=== PATIENT | male | born 1945 | race Caucasian/White ===

== ENCOUNTER 2022-12-06 11:15 | Inpatient (IN) | payer OTHER ==
[2022-12-06] MEDS ORDERED: LIDOCAINE 5% TOPICAL PATCH TP ONE (11:55)
[2022-12-06] MEDS ORDERED: ACETAMINOPHEN 1000 MG/100 ML BAG IVPB ONE (11:55)
[2022-12-06] MEDS ORDERED: ACETAMINOPHEN INJECTION 100 ML IVPB ONE (12:18)
[2022-12-06] MEDS ORDERED: LIDOCAINE 5% TOPICAL PATCH ONE (12:20)
[2022-12-06 13:00] LABS: BASO % 0.4 % (0-2.0); EOS % 0.4 % (0-4.5); HEMATOCRIT 47.5 % (35.4-49); HEMOGLOBIN 15.7 GM/dL (11.7-16.9); LYMPH % 14.5 % (8-40); MCH 29.7 pg (25.7-33.7); MCHC 33.2 g/dl (32.0-35.9); MEAN CELL VOLUME 89.7 fl (80-96); MEAN PLT VOLUME 7.5 fl (7.5-11.1); MONO % 6.8 % (3.8-10.2); NEUT % 77.9 % (42.8-82.8); PLATELET COUNT 335 10^3/uL (134-434); RBC 5.29 M/mm3 (4.00-5.60); RDW 15.4 % (11.9-15.9); WHITE BLOOD COUNT 14.6 K/mm3 (4.0-10.0)
[2022-12-06 13:04] LABS: INR 1.17 (0.83-1.09); PROTHROMBIN TIME (PATIENT) 13.5 SEC (9.7-13.0)
[2022-12-06 13:06] LABS: ACTIVATED PTT 30.9 SECONDS (25.2-36.5)
[2022-12-06 13:12] LABS: POTASSIUM 5.3 mmol/L (3.5-5.1)
[2022-12-06 13:14] LABS: ALBUMIN 3.1 g/dl (3.4-5.0); CALCIUM 8.7 mg/dL (8.5-10.1)
[2022-12-06 13:15] LABS: BLOOD UREA NITROGEN 20.6 mg/dL (7-18)
[2022-12-06 13:18] LABS: CREATININE 1.3 mg/dL (0.55-1.3)
[2022-12-06 13:19] LABS: TOT PROT 6.9 g/dl (6.4-8.2)
[2022-12-06 13:20] LABS: BILIRUBIN,TOTAL 0.8 mg/dL (0.2-1)
[2022-12-06] MEDS ORDERED: AZITHROMYCIN IVPB 500 MG in DEXTROSE 5%-WATER - 250 ML IVPB ONE (15:43)
[2022-12-06] MEDS ORDERED: CEFTRIAXONE 1,000 MG in DEXTROSE 5%-WATER - 50 ML IVPB ONE (15:43)
[2022-12-06] MEDS ORDERED: methylPREDNISolone NA SUCC 125 MG/2 ML VIAL IVPUSH ONE (16:57)
[2022-12-06] MEDS ORDERED: ALBUTEROL SO4 2.5/IPRATROPIUM 0.5 INH SOL 3 ML VIAL.NEB. NEB ONE ×2 (17:00→17:01)
[2022-12-06] MEDS ORDERED: CEFTRIAXONE 1 GM/50 ML BAG ONE (17:01)
[2022-12-06] MEDS ORDERED: methylPREDNISolone NA SUCC 125 MG/2 ML VIAL ONE (17:01)
[2022-12-06] MEDS: ALBUTEROL SO4 2.5/IPRATROPIUM 0.5 INH SOL 3 ML VIAL.NEB. NEB SCH ×5 (17:02→21:32)
[2022-12-06] MEDS ORDERED: AZITHROMYCIN IVPB 500 MG/250 ML BAG IVPB ONE (17:52)
[2022-12-06] MEDS ORDERED: ALBUTEROL SO4 HFA INHALER IH PRN (17:54)
[2022-12-06] MEDS ORDERED: ALBUTEROL SO4 2.5/IPRATROPIUM 0.5 INH SOL 3 ML VIAL.NEB. NEB SCH (18:00)
[2022-12-06] MEDS ORDERED: predniSONE 20 MG TABLET (UD) PO SCH (18:00)
[2022-12-06] MEDS ORDERED: predniSONE 20 MG TABLET (UD) ONE (18:05)
[2022-12-06] MEDS ORDERED: ACETAMINOPHEN 325 MG TABLET (FP) PO PRN (18:18)
[2022-12-06] MEDS: LIDOCAINE PATCH REMOVAL MC SCH (21:59)
[2022-12-06] MEDS ORDERED: LIDOCAINE PATCH REMOVAL MC ONE (22:00)
[2022-12-06] MEDS: INSULIN SLIDING SCALE (NOVOLOG) 1 VIAL SQ SCH (22:11)
[2022-12-07 04:06] VITALS: BMI 27.1
[2022-12-07] MEDS: ALBUTEROL SO4 2.5/IPRATROPIUM 0.5 INH SOL 3 ML VIAL.NEB. NEB SCH ×4 (07:32→20:13)
[2022-12-07] MEDS: INSULIN SLIDING SCALE (NOVOLOG) 1 VIAL SQ SCH ×4 (07:42→21:34)
[2022-12-07 09:04] LABS: BASO % 0.4 % (0-2.0); HEMATOCRIT 44.8 % (35.4-49); HEMOGLOBIN 14.6 GM/dL (11.7-16.9); LYMPH % 8.8 % (8-40); MCHC 32.7 g/dl (32.0-35.9); MEAN CELL VOLUME 91.8 fl (80-96); MEAN PLT VOLUME 8.7 fl (7.5-11.1); MONO % 1.7 % (3.8-10.2); NEUT % 89.1 % (42.8-82.8); PLATELET COUNT 335 10^3/uL (134-434); RBC 4.88 M/mm3 (4.00-5.60); RDW 14.8 % (11.9-15.9); WHITE BLOOD COUNT 11.1 K/mm3 (4.0-10.0)
[2022-12-07] MEDS: INSULIN (LEVEMIR) 100 UNITS/ML UNITS SQ SCH ×2 (09:23→21:34)
[2022-12-07] MEDS: AZITHROMYCIN IVPB 250 MG in DEXTROSE 5%-WATER - 250 ML IVPB SCH (09:27)
[2022-12-07] MEDS: LIDOCAINE 5% TOPICAL PATCH TP SCH (09:27)
[2022-12-07] MEDS: ENOXAPARIN NA (PORCINE) 40 MG/0.4 ML DISP.SYRIN SQ SCH (09:27)
[2022-12-07] MEDS: LOSARTAN POTASSIUM 25 MG TABLET PO SCH (09:27)
[2022-12-07] MEDS: amLODIPine BESYLATE 10 MG TABLET (FP) PO SCH (09:27)
[2022-12-07] MEDS: predniSONE 20 MG TABLET (UD) PO SCH (09:27)
[2022-12-07 09:30] LABS: CHLORIDE 103 mmol/L (98-107); SODIUM 136 mmol/L (136-145)
[2022-12-07 09:35] LABS: CHOLESTEROL 130 mg/dL (50-200)
[2022-12-07 09:37] LABS: HDL CHOLESTEROL 54 mg/dL (40-60)
[2022-12-07 09:38] LABS: CALCIUM 8.1 mg/dL (8.5-10.1); LDL CHOLESTEROL (ONLY SJRH) 64 mg/dL (5-100)
[2022-12-07 09:39] LABS: ANION GAP 10 MMOL/L (8-16); CO2 22 mmol/L (21-32); MAGNESIUM 2.1 mg/dL (1.8-2.4)
[2022-12-07 09:41] LABS: CREATININE 1.3 mg/dL (0.55-1.3); PHOSPHOROUS 4.3 mg/dL (2.5-4.9)
[2022-12-07 09:42] LABS: SGOT/AST 13 U/L (15-37); SGPT/ALT 25 U/L (13-61)
[2022-12-07 09:45] LABS: BILIRUBIN,TOTAL 0.7 mg/dL (0.2-1); TOT PROT 6.5 g/dl (6.4-8.2)
[2022-12-07 09:46] LABS: ALK PHOS 65 U/L (45-117)
[2022-12-07 09:53] LABS: GLUCOSE,RANDOM 417 mg/dL (74-106)
[2022-12-07] MEDS: INSULIN (NOVOLOG) ASPART 100 UNITS/ML 10ML VIAL SQ SCH (16:30)
[2022-12-07] MEDS ORDERED: INSULIN (NOVOLOG) ASPART 100 UNITS/ML 10ML VIAL ONE (21:07)
[2022-12-07] MEDS: LIDOCAINE PATCH REMOVAL MC SCH (21:31)
[2022-12-08] MEDS: INSULIN (LEVEMIR) 100 UNITS/ML UNITS SQ SCH ×2 (06:38→21:47)
[2022-12-08] MEDS: INSULIN SLIDING SCALE (NOVOLOG) 1 VIAL SQ SCH ×4 (06:38→21:47)
[2022-12-08] MEDS: INSULIN (NOVOLOG) ASPART 100 UNITS/ML 10ML VIAL SQ SCH ×3 (06:39→16:51)
[2022-12-08] MEDS: ALBUTEROL SO4 2.5/IPRATROPIUM 0.5 INH SOL 3 ML VIAL.NEB. NEB SCH ×4 (07:30→19:53)
[2022-12-08] MEDS ORDERED: INSULIN (NOVOLOG) ASPART 100 UNITS/ML 10ML VIAL ONE ×2 (07:46→21:24)
[2022-12-08] MEDS ORDERED: INSULIN (LEVEMIR) 100 UNITS/ML UNITS SQ ONE (07:46)
[2022-12-08] MEDS: predniSONE 20 MG TABLET (UD) PO SCH (10:00)
[2022-12-08] MEDS: ENOXAPARIN NA (PORCINE) 40 MG/0.4 ML DISP.SYRIN SQ SCH (10:01)
[2022-12-08] MEDS: LIDOCAINE 5% TOPICAL PATCH TP SCH (10:01)
[2022-12-08] MEDS: LOSARTAN POTASSIUM 25 MG TABLET PO SCH (10:01)
[2022-12-08] MEDS: amLODIPine BESYLATE 10 MG TABLET (FP) PO SCH (10:01)
[2022-12-08] MEDS: AZITHROMYCIN IVPB 250 MG in DEXTROSE 5%-WATER - 250 ML IVPB SCH (10:51)
[2022-12-08] MEDS ORDERED: methylPREDNISolone NA SUCC 40 MG/1 ML VIAL IVPUSH ONE (13:12)
[2022-12-08] MEDS: methylPREDNISolone NA SUCC 40 MG/1 ML VIAL IVPUSH SCH (14:41)
[2022-12-08] MEDS: LIDOCAINE PATCH REMOVAL MC SCH (21:47)
[2022-12-08] MEDS: ATORVASTATIN CA 40 MG TABLET (FP) PO SCH (21:47)
[2022-12-09] MEDS: INSULIN (NOVOLOG) ASPART 100 UNITS/ML 10ML VIAL SQ SCH ×3 (06:37→16:57)
[2022-12-09] MEDS: INSULIN (LEVEMIR) 100 UNITS/ML UNITS SQ SCH ×3 (06:37→21:25)
[2022-12-09] MEDS: INSULIN SLIDING SCALE (NOVOLOG) 1 VIAL SQ SCH ×4 (06:37→21:26)
[2022-12-09] MEDS ORDERED: INSULIN (LEVEMIR) 100 UNITS/ML UNITS SQ ONE (07:32)
[2022-12-09] MEDS: ALBUTEROL SO4 2.5/IPRATROPIUM 0.5 INH SOL 3 ML VIAL.NEB. NEB SCH ×4 (07:53→19:37)
[2022-12-09] MEDS: LIDOCAINE 5% TOPICAL PATCH TP SCH (09:56)
[2022-12-09] MEDS: amLODIPine BESYLATE 10 MG TABLET (FP) PO SCH (09:56)
[2022-12-09] MEDS: ENOXAPARIN NA (PORCINE) 40 MG/0.4 ML DISP.SYRIN SQ SCH (09:56)
[2022-12-09] MEDS: methylPREDNISolone NA SUCC 40 MG/1 ML VIAL IVPUSH SCH (09:56)
[2022-12-09] MEDS: LOSARTAN POTASSIUM 25 MG TABLET PO SCH (09:56)
[2022-12-09] MEDS: AZITHROMYCIN IVPB 250 MG in DEXTROSE 5%-WATER - 250 ML IVPB SCH (09:57)
[2022-12-09 10:30] LABS: BASO % 0.4 % (0-2.0); EOS % 0.6 % (0-4.5); HEMOGLOBIN 13.7 GM/dL (11.7-16.9); LYMPH % 20.3 % (8-40); MCH 29.4 pg (25.7-33.7); MCHC 32.7 g/dl (32.0-35.9); MEAN PLT VOLUME 7.6 fl (7.5-11.1); MONO % 7.8 % (3.8-10.2); NEUT % 70.9 % (42.8-82.8); PLATELET COUNT 363 10^3/uL (134-434); RBC 4.66 M/mm3 (4.00-5.60); RDW 15.3 % (11.9-15.9); WHITE BLOOD COUNT 12.4 K/mm3 (4.0-10.0)
[2022-12-09 10:53] LABS: POTASSIUM 4.1 mmol/L (3.5-5.1)
[2022-12-09 10:59] LABS: CALCIUM 8.2 mg/dL (8.5-10.1)
[2022-12-09 11:00] LABS: CREATININE 0.9 mg/dL (0.55-1.3); MAGNESIUM 2.1 mg/dL (1.8-2.4)
[2022-12-09 11:01] LABS: BLOOD UREA NITROGEN 28.2 mg/dL (7-18)
[2022-12-09 11:02] LABS: ALBUMIN 2.5 g/dl (3.4-5.0); TOT PROT 5.4 g/dl (6.4-8.2)
[2022-12-09 11:06] LABS: BILIRUBIN,TOTAL 0.3 mg/dL (0.2-1)
[2022-12-09] MEDS: BUDESONIDE/FORMETEROL FUMARATE 160/4.5 mcg INHALER IH SCH ×2 (11:50→21:33)
[2022-12-09] MEDS: ATORVASTATIN CA 40 MG TABLET (FP) PO SCH (21:26)
[2022-12-09] MEDS: LIDOCAINE PATCH REMOVAL MC SCH (21:33)
[2022-12-10] MEDS: INSULIN (LEVEMIR) 100 UNITS/ML UNITS SQ SCH (06:31)
[2022-12-10] MEDS: INSULIN (NOVOLOG) ASPART 100 UNITS/ML 10ML VIAL SQ SCH ×2 (06:34→11:27)
[2022-12-10] MEDS: INSULIN SLIDING SCALE (NOVOLOG) 1 VIAL SQ SCH ×2 (06:35→11:28)
[2022-12-10] MEDS: ALBUTEROL SO4 2.5/IPRATROPIUM 0.5 INH SOL 3 ML VIAL.NEB. NEB SCH ×2 (07:46→11:29)
[2022-12-10 09:42] LABS: BASO % 0.7 % (0-2.0); EOS % 0.9 % (0-4.5); HEMATOCRIT 46.8 % (35.4-49); HEMOGLOBIN 15.2 GM/dL (11.7-16.9); LYMPH % 25.2 % (8-40); MCH 29.5 pg (25.7-33.7); MCHC 32.5 g/dl (32.0-35.9); MEAN CELL VOLUME 90.6 fl (80-96); MONO % 7.5 % (3.8-10.2); NEUT % 65.7 % (42.8-82.8); PLATELET COUNT 397 10^3/uL (134-434); RBC 5.17 M/mm3 (4.00-5.60); RDW 15.1 % (11.9-15.9); WHITE BLOOD COUNT 12.8 K/mm3 (4.0-10.0)
[2022-12-10 09:52] LABS: POTASSIUM 4.3 mmol/L (3.5-5.1)
[2022-12-10] MEDS: amLODIPine BESYLATE 10 MG TABLET (FP) PO SCH (09:59)
[2022-12-10] MEDS: LOSARTAN POTASSIUM 25 MG TABLET PO SCH (09:59)
[2022-12-10] MEDS: AZITHROMYCIN IVPB 250 MG in DEXTROSE 5%-WATER - 250 ML IVPB SCH (09:59)
[2022-12-10] MEDS: methylPREDNISolone NA SUCC 40 MG/1 ML VIAL IVPUSH SCH (10:00)
[2022-12-10] MEDS: BUDESONIDE/FORMETEROL FUMARATE 160/4.5 mcg INHALER IH SCH (10:00)
[2022-12-10] MEDS: ENOXAPARIN NA (PORCINE) 40 MG/0.4 ML DISP.SYRIN SQ SCH (10:03)
[2022-12-10 10:09] LABS: PHOSPHOROUS 3.6 mg/dL (2.5-4.9)
[2022-12-10 10:10] LABS: BILIRUBIN,TOTAL 0.6 mg/dL (0.2-1); TOT PROT 6.3 g/dl (6.4-8.2)
[2022-12-10 10:11] LABS: ALBUMIN 2.8 g/dl (3.4-5.0); BLOOD UREA NITROGEN 23.4 mg/dL (7-18); CALCIUM 8.7 mg/dL (8.5-10.1); MAGNESIUM 2.1 mg/dL (1.8-2.4)
[2022-12-10] MEDS: LIDOCAINE 5% TOPICAL PATCH TP SCH (10:12)
[2022-12-10 10:14] LABS: CREATININE 0.8 mg/dL (0.55-1.3)
[2022-12-10] MEDS ORDERED: INSULIN (NOVOLOG) ASPART 100 UNITS/ML 10ML VIAL ONE (11:25)
[2022-12-10 11:59] VITALS: RESP 20; TEMP 97.6
[2022-12-10 14:40] VITALS: BP 135/63; PULSE 82
== END 2022-12-10 15:06 | disposition home or self-care (01) | DRG 190 ==
LOC: JER 11:15 → JERBED 12:40 → J6S 20:42
PROVIDERS: ADMIT Internal Medicine; ATTEND Internal Medicine
DX: J44.1 Chronic obstructive pulmonary disease with (acute) exacerbation (principal); J96.01 Acute respiratory failure with hypoxia; E78.5 Hyperlipidemia, unspecified; I10 Essential (primary) hypertension; I25.10 Atherosclerotic heart disease of native coronary artery without angina pectoris; E87.5 Hyperkalemia; E11.65 Type 2 diabetes mellitus with hyperglycemia; F17.210 Nicotine dependence, cigarettes, uncomplicated
CPT/HCPCS: 0241U-QW; 36415; 71046-TC-FY; 71275-TC; 74177-TC; 80053; 80061; 82962; 83036; 83735; 84100; 84443; 84484; 85025; 85610; 85730; 93005; 93010; 94640; 94761; 99291; Q9967